=== PATIENT | female | born 1995 | race Hispanic/Latino ===

== ENCOUNTER 2024-04-03 21:58 | Inpatient (IN) | payer SELFPAY ==
[~2024-04-03] VITALS: Ht 160 cm; Wt 70.3 kg
[2024-04-03 22:37] LABS: APPEARANCE,URINE TURBID (CLEAR); BILIRUBIN,URINE NEGATIVE (NEGATIVE); COLOR,URINE LIGHT-ORANGE (YELLOW); GLUCOSE, URINE (UA) 150 mg/dL (NEGATIVE); KETONES,URINE NEGATIVE (NEGATIVE); LEUKOCYTE ESTERASE ,URINE 75 Leu/uL (NEGATIVE); NITRATE,URINE NEGATIVE (NEGATIVE); OCCULT BLOOD,URINE LARGE (NEGATIVE); PH,URINE 7.5 (5.0-8.0); PROTEIN,URINE 100 mg/dL (NEGATIVE); UROBILINOGEN,URINE 0.2 mg/dL (0.2-1.0)
[2024-04-03 22:42] LABS: ADD UA MICROSCOPIC YES
[2024-04-03 22:46] LABS: AMPHET/METH SCREEN,URINE NEGATIVE (NEGATIVE); BARBITURATE SCREEN, URINE NEGATIVE (NEGATIVE); BENZODIAZEPINES SCREEN,URINE NEGATIVE (NEGATIVE); CANNABINOID SCREEN,URINE NEGATIVE (NEGATIVE); COCAINE SCREEN,URINE NEGATIVE (NEGATIVE); OPIATE SCREEN,URINE NEGATIVE (NEGATIVE); PHENCYCLIDINE SCREEN,URINE NEGATIVE (NEGATIVE)
[2024-04-03 22:48] LABS: BACTERIA,URINE RARE /HPF (None Seen); MUCUS,URINE RARE LPF (None Seen); SQUAMOUS EPITHELIAL CELL,UR MANY /HPF (0-2)
[2024-04-03 23:18] LABS: HEMATOCRIT 36.7 % (36-48); MEAN CORPUSCULAR HEMOGLOBIN 27.1 pg (27.0-33.0); MEAN CORPUSCULAR HGB CONC 32.2 g/dL (32.0-36.0); MEAN CORPUSCULAR VOLUME 84.4 fL (79-99); NUCLEATED RED BLOOD CELLS 0.4 % (0.0-0.19); RED BLOOD CELL COUNT(AUTO) 4.35 MIL/uL (4.00-5.50); RED CELL DISTRIBUTION WIDTH 14.6 % (11.0-15.5); WHITE BLOOD COUNT (AUTO) 8.4 K/uL (4.8-10.8)
[2024-04-03] MEDS ORDERED: NALoxone HCL 0.4 MG/1 ML ML IV PRN (23:30)
[2024-04-03] MEDS ORDERED: LACTATED RINGERS 500 ML 500 ML IV PRN (23:30)
[2024-04-03] MEDS ORDERED: ePHEDrine SULFate 50 MG/ML AMPULE IVP PRN (23:30)
[2024-04-03] MEDS: AMPICILLIN 2GM+NS 100ML 100 ML IV SCH (23:38)
[2024-04-03] MEDS: LACTATED RINGERS 1000ML 1,000 ML IV PRN (23:38)
[2024-04-04 00:31] LABS: HIV 1&2 ANTIBODY Non-Reactive (Negative)
[2024-04-04 00:32] LABS: HIV-1 p24 Antigen Non-Reactive (Negative)
[2024-04-04] MEDS: DINOPROSTONE 10 MG VAGINAL SUPP VG ONE (02:06)
[2024-04-04] MEDS: AMPICILLIN 1GM+NS 50ML 50 ML IV SCH (03:35)
[2024-04-04] MEDS: MEPERIDINE-PF 50 MG/ML SYG SQ PRN (06:15)
[2024-04-04] MEDS: PROMETHAZINE HCL 25 MG/ML 1ML AMPULE IM PRN (06:15)
[2024-04-04] MEDS ORDERED: OXYTOCIN-LR 30 UNITS/500ML 500 ML IV SCH (10:00)
[2024-04-04] MEDS: OXYTOCIN-LR 30 UNITS/500ML 500 ML IV SCH ×2 (10:20→18:14)
[2024-04-04 12:59] LABS: RAPID PLASMA REAGIN NONREACTIVE (NONREACTIVE)
[2024-04-04] MEDS ORDERED: LIDOCAINE HCL 1% 20 ML VIAL ONE (16:17)
[2024-04-04] MEDS ORDERED: MISOPROSTOL 200 MCG TABLET ONE (16:17)
[2024-04-04] MEDS ORDERED: WITCH HAZEL 1 PAD TP PRN (17:30)
[2024-04-04] MEDS ORDERED: LANOLIN 30GM OINTMENT TP PRN (17:30)
[2024-04-04] MEDS ORDERED: DIPH,PERTUSS(ACELL),TET VAC/PF 0.5 ML VIAL IM PRN (17:30)
[2024-04-04] MEDS ORDERED: BENZOCAINE/LANOLIN/ALOE VERA 60 ML AEROSOL TP PRN (17:30)
[2024-04-04] MEDS ORDERED: acetaMINOPHEN 325 MG TAB PO PRN (17:30)
[2024-04-04] MEDS ORDERED: acetaMINOPHEN WITH coDEINE 1 TAB TAB PO PRN (17:30)
[2024-04-04] MEDS ORDERED: MEASLES/MUMPS/RUBELLA VACCINE, LIVE 0.5 ML/VIAL SQ PRN (17:30)
[2024-04-04 19:20] VITALS: BP 126/74; PULSE 76; RESP 20; TEMP 98
[2024-04-04] MEDS: IBUPROFEN 600 MG TABLET PO PRN (20:28)
[2024-04-04] MEDS: doCUSate SODIUM 100 MG CAP PO SCH (20:29)
[2024-04-04 23:10] VITALS: BP 102/63; PULSE 91; RESP 20; TEMP 98
[2024-04-05 03:40] VITALS: BP 101/70; PULSE 88; RESP 20; TEMP 98.1
[2024-04-05 07:15] VITALS: BP 105/67; PULSE 95; RESP 18; TEMP 98.1
[2024-04-05 08:51] LABS: HEMATOCRIT 34.4 % (36-48); MEAN CORPUSCULAR HEMOGLOBIN 26.2 pg (27.0-33.0); MEAN CORPUSCULAR HGB CONC 31.4 g/dL (32.0-36.0); MEAN CORPUSCULAR VOLUME 83.5 fL (79-99); RED BLOOD CELL COUNT(AUTO) 4.12 MIL/uL (4.00-5.50); WHITE BLOOD COUNT (AUTO) 13.2 K/uL (4.8-10.8)
[2024-04-05 11:20] VITALS: BP 117/71; PULSE 86; RESP 18; TEMP 97.9
[2024-04-05 15:15] VITALS: BP 108/64; PULSE 89; RESP 18; TEMP 98
[2024-04-05 19:22] VITALS: BP 118/67; PULSE 92; RESP 20; TEMP 98
[2024-04-05 23:12] VITALS: BP 109/65; PULSE 80; RESP 20; TEMP 98
[2024-04-06 03:40] VITALS: BP 119/75; PULSE 98; RESP 20; TEMP 98
[2024-04-06 08:00] VITALS: BP 118/79; PULSE 82; RESP 18; TEMP 98.1
== END 2024-04-06 12:00 | disposition home or self-care (01) | DRG 807 ==
LOC: EDH 21:58 → OBSVTOIN 22:05 → LDH 22:05 → WSH 04-04 19:20
PROVIDERS: ADMIT Internal Medicine; ATTEND Internal Medicine
PROC: 10E0XZZ Delivery of Products of Conception, External Approach (ICD-10-PCS; principal; 2024-04-03)
PROC: 0HQ9XZZ Repair Perineum Skin, External Approach (ICD-10-PCS; 2024-04-03)
PROC: 3E033VJ Introduction of Other Hormone into Peripheral Vein, Percutaneous Approach (ICD-10-PCS; 2024-04-03)
PROC: 3E0R3BZ Introduction of Anesthetic Agent into Spinal Canal, Percutaneous Approach (ICD-10-PCS; 2024-04-03)
PROC: 00HU33Z Insertion of Infusion Device into Spinal Canal, Percutaneous Approach (ICD-10-PCS; 2024-04-03)
DX: O42.92 Full-term premature rupture of membranes, unspecified as to length of time between rupture and onset of labor (principal); Z37.0 Single live birth; O70.0 First degree perineal laceration during delivery; O69.81X0 Labor and delivery complicated by cord around neck, without compression, not applicable or unspecified; Z3A.39 39 weeks gestation of pregnancy
CPT/HCPCS: 36415; 76805; 80305; 81001; 82120; 82948; 85027; 86592; 86701; 86850; 86900; 86901; 87086; 87340; 87390; A4314; G0378; J0290; J2175; J2210; J2550; J2795